=== PATIENT | female | born 1995 | race African-American/Black ===

== ENCOUNTER 2018-04-18 13:35 | Emergency (ER) | payer OTHER ==
[~2018-04-18] VITALS: Ht 157.5 cm; Wt 54.4 kg
[~2018-04-18 13:35] MED LIST: AMOXICILLI250 MG/51 PO; CITRATE OF MAG296 ML PO; DOXYCYCLINE 10100 MG PO; FLAGYL500 MG PO; IBUPROFEN 600600 M1 PO; METOCLOPRAM5 MG/5 M2 PO; MILK OF MA2400 MG/10; NOHOMEMEDICATIONS; PHENERGAN25 M1 RECTAL; PRENATAL PO; PRENATAL TABLE1 EAC3 PO; ZOFRAN ODT4 MG SUBLING
[2018-04-18] MEDS ORDERED: ONDANSETRON HCL4 M2 PO (14:59)
[2018-04-18 15:17] VITALS: BP 94/51
== END 2018-04-18 15:18 | disposition home or self-care (01) ==
LOC: ER 13:35
DX: R51 Headache (principal); R11.10 Vomiting, unspecified